=== PATIENT | female | born 1980 | race Caucasian/White ===

== ENCOUNTER → 2018-02-21 | Outpatient (CLI) | payer OTHER ==
[~2018-02-21] MED LIST: CALC400T6 PO; CYAN10002 IM; CYAN100028 PO; CYAN100T PO; CYCL5TAB PO; HYDR-3237 PO; METF500T17 PO; ONDA4TAB10 PO; OXYC5TAB3 PO
== END | disposition home or self-care (01) ==
LOC: RAD 09:27
PROVIDERS: ATTEND Surgery
DX: K82.8 Other specified diseases of gallbladder (principal)
CPT/HCPCS: 78227; A9537

== ENCOUNTER 2018-02-27 06:13 | Day surgery (SDC) | payer OTHER ==
[~2018-02-27] VITALS: Ht 175.3 cm; Wt 93.0 kg
[2018-02-27] MEDS ORDERED: EPINEPHRINE 1 MG/ML, 1ML ONE (06:47)
[2018-02-27] MEDS ORDERED: BUPIVACAINE/PF 0.25% ONE (06:47)
[2018-02-27 06:48] LABS: HCG UR SG 1.023 (1.003-1.030)
[2018-02-27 06:49] VITALS: BP 134/88
[2018-02-27] MEDS ORDERED: LACTATED RINGERS 1,000 ML IV SCH (06:55)
[2018-02-27] MEDS ORDERED: ONDA4TAB7 PO (06:57)
[2018-02-27] MEDS ORDERED: HYDR-3240 PO (06:57)
[2018-02-27] MEDS ORDERED: ONDANSETRON ODT 8 MG PO STA (07:07)
[2018-02-27] MEDS ORDERED: ACETAMINOPHEN 500 MG TABLET PO STA (07:07)
[2018-02-27] MEDS ORDERED: ONDANSETRON ODT 8 MG ONE (07:11)
[2018-02-27] MEDS ORDERED: ACETAMINOPHEN 500 MG TABLET ONE (07:11)
[2018-02-27] MEDS ORDERED: FENTANYL PF 100 MCG/2ML ONE ×2 (07:15→08:07)
[2018-02-27] MEDS ORDERED: MIDAZOLAM 1 MG/ML, 2ML ONE (07:15)
[2018-02-27] MEDS ORDERED: SUGAMMADEX 200 MG/2 ML IVPush ONE (07:18)
[2018-02-27] MEDS ORDERED: SUCCINYLCHOLINE 20 MG/ML, 10ML ONE (07:21)
[2018-02-27] MEDS ORDERED: CEFAZOLIN 1,000 MG ONE (07:21)
[2018-02-27] MEDS ORDERED: PROPOFOL 10 MG/ML, 20ML ONE (07:21)
[2018-02-27] MEDS ORDERED: NEOSTIGMINE 1 MG/ML, 10ML ONE (07:21)
[2018-02-27] MEDS ORDERED: ROCURONIUM 10MG/ML,5ML ONE (07:21)
[2018-02-27] MEDS ORDERED: GLYCOPYRROLATE 0.2MG/1ML, 5ML ONE (07:21)
[2018-02-27] MEDS ORDERED: HYDROmorphone 2 MG/ML, 1ML IVPush PRN (08:00)
[2018-02-27] MEDS ORDERED: METOCLOPRAMIDE 5 MG/ML, 2ML IV PRN (08:00)
[2018-02-27] MEDS ORDERED: OXYcodone 5 MG/5 ML ORAL.SOL UDC PO PRN (08:00)
[2018-02-27] MEDS ORDERED: MORPHINE SULFATE 4 MG/ML, 1ML IVPush PRN (08:00)
[2018-02-27] MEDS ORDERED: LABETALOL 5MG/ML, 20ML IV PRN (08:00)
[2018-02-27] MEDS: FENTANYL PF 100 MCG/2ML IV PRN ×2 (08:07→08:29)
[2018-02-27] MEDS ORDERED: OXYcodone 5 MG/5 ML ORAL.SOL UDC ONE (08:07)
[2018-02-27] MEDS ORDERED: LORazepam 2 MG/ML, 1ML ONE (08:09)
[2018-02-27] MEDS: LORazepam 2 MG/ML, 1ML IVPush PRN ×2 (08:11→08:21)
[2018-02-27] MEDS ORDERED: MEPERIDINE/PF 50 MG/ML ONE (08:21)
[2018-02-27] MEDS: MEPERIDINE/PF 25MG/0.5ML IVPush PRN ×2 (08:24→08:56)
== END 2018-02-27 12:15 | disposition home or self-care (01) ==
LOC: OUT 06:13
PROVIDERS: ATTEND Surgery
DX: K81.1 Chronic cholecystitis (principal); F32.9 Major depressive disorder, single episode, unspecified; E03.9 Hypothyroidism, unspecified; G43.909 Migraine, unspecified, not intractable, without status migrainosus; Z87.39 Personal history of other diseases of the musculoskeletal system and connective tissue; Z87.442 Personal history of urinary calculi; Z98.890 Other specified postprocedural states; Z98.51 Tubal ligation status
CPT/HCPCS: 47562; 81025; 88304; C1729; C1760; J0171; J0330; J0690; J2060; J2175; J2250; J2704; J2710; J3010; J3490; J7120; Q0162

== ENCOUNTER 2019-08-02 15:00 | Outpatient (CLI) | payer OTHER ==
[~2019-08-02 15:00] MED LIST changes: -CYAN100T PO; +CYAN100T2 PO; +HYDR-3240 PO; +ONDA4TAB7 PO
== END 2019-08-02 23:59 | disposition home or self-care (01) ==
LOC: RAD 15:00
PROVIDERS: ATTEND Neurological Surgery
DX: Z01.810 Encounter for preprocedural cardiovascular examination (principal); Z01.811 Encounter for preprocedural respiratory examination; Z01.812 Encounter for preprocedural laboratory examination; M51.16 Intervertebral disc disorders with radiculopathy, lumbar region; R79.1 Abnormal coagulation profile; R82.90 Unspecified abnormal findings in urine; R94.31 Abnormal electrocardiogram [ECG] [EKG]
CPT/HCPCS: 71046; 93005